=== PATIENT | female | born 1975 | race Caucasian/White ===

== ENCOUNTER 2018-03-25 16:30 | Emergency (ER) | payer SELFPAY ==
[~2018-03-25] VITALS: Ht 162.6 cm; Wt 118.2 kg
[2018-03-25] MEDS ORDERED: CITALOPRAM HBR10 MG (16:45)
[2018-03-25 17:32] LABS: EOS # 0.2 (0.04-0.40); EOS % 1.2 % (1.0-5.0); HEMATOCRIT 42.1 % (37.0-47.0); HEMOGLOBIN 14.4 g/dL (12.5-16.0); LYMPH# 3.9 (1.50-4.00); MEAN CELL VOLUME 84 fl (78-100); MEAN CORPUSCULAR HEMOGLOBIN 29 pg (27-31); MEAN CORPUSCULAR HGB CONC 34 g/dL (33-37); MEAN PLATELET VOLUME 9.8 fl (7.4-10.4); MONO # 0.9 (0.20-0.80); PLATELET COUNT 371 K/mm3 (130-400); RED BLOOD COUNT 5.04 M/mm3 (4.10-5.30); RED CELL DISTRIBUTION WIDTH 13.9 % (11.5-14.5); WHITE BLOOD COUNT 14.6 K/mm3 (4.8-10.8)
[2018-03-25 17:46] LABS: ALBUMIN 4.5 g/dL (3.5-5.0); CALCIUM 9.4 mg/dL (8.4-10.2); POTASSIUM 4.4 mmol/L (3.6-5.0); TOTAL BILIRUBIN 0.5 mg/dL (0.2-1.3); TOTAL PROTEIN 8.2 g/dL (6.3-8.2)
[2018-03-25 17:50] LABS: NEU # 9.5 (1.40-6.50)
[2018-03-25] MEDS ORDERED: BACTRIM DS TAB1 EACH PO (18:34)
[2018-03-25] MEDS ORDERED: CEPHALEXIN500 M1 PO (18:34)
[2018-03-25] MEDS ORDERED: BACITRACIN TOPIC1 TU TP (18:34)
[2018-03-25 18:39] VITALS: BP 172/98
[2018-03-25 18:39] LABS: ERYTHROCYTE SEDIMENTATION RATE 28 mm/hr (0-20)
== END 2018-03-25 18:40 | disposition home or self-care (01) ==
LOC: ED 16:30
PROVIDERS: Family Medicine
DX: L02.511 Cutaneous abscess of right hand (principal); L02.211 Cutaneous abscess of abdominal wall; L03.311 Cellulitis of abdominal wall; L03.011 Cellulitis of right finger

== ENCOUNTER 2019-03-12 16:49 | Emergency (ER) | payer SELFPAY ==
[~2019-03-12] VITALS: Ht 160 cm; Wt 127.3 kg
[~2019-03-12 16:49] MED LIST: BACITRACIN TOPIC1 TU TP; BACTRIM DS TAB1 EACH PO; CEPHALEXIN500 M1 PO; CITALOPRAM HBR10 MG PO
[2019-03-12] MEDS ORDERED: WELLBUTRIN SR100 M4 PO (19:06)
[2019-03-12] MEDS ORDERED: KETOROLAC10 MG PO (19:30)
[2019-03-12] MEDS ORDERED: AMOXICILLIN 50500 MG PO (19:30)
[2019-03-12 19:55] VITALS: BP 153/90
== END 2019-03-12 19:55 | disposition home or self-care (01) ==
LOC: ED 16:49
DX: K08.89 Other specified disorders of teeth and supporting structures (principal); F32.9 Major depressive disorder, single episode, unspecified; F17.210 Nicotine dependence, cigarettes, uncomplicated
CPT/HCPCS: J1885